=== PATIENT | female | born 1970 | race Caucasian/White ===

== ENCOUNTER 2016-10-08 09:35 | Emergency (ER) | payer OTHER ==
[~2016-10-08] VITALS: Ht 157.5 cm; Wt 101.9 kg
[2016-10-08] MEDS ORDERED: OXCA600T PO (09:50)
[2016-10-08] MEDS ORDERED: KEPP250T5 PO (09:50)
[2016-10-08] MEDS ORDERED: IBUP-1022 PO (09:50)
[2016-10-08] MEDS ORDERED: VITA-110 PO (09:50)
[2016-10-08] MEDS ORDERED: METF-808 PO (09:50)
[2016-10-08] MEDS ORDERED: PRAV40TA2 PO (09:50)
[2016-10-08] MEDS ORDERED: PERCOCET 5MG/325MG TAB PO ONE (10:15)
[2016-10-08] MEDS ORDERED: KETOROLAC 60 MG/2 ML VIAL (J1885) IM ONE (10:15)
[2016-10-08] MEDS ORDERED: PERCOCET 5MG/325MG TAB As Ordered ONE (10:16)
[2016-10-08] MEDS ORDERED: HYDROmorphone HCL 1 MG/ML SYRINGE (J1170) IM ONE (13:00)
--- NOTE | 2016-10-08 14:20 | REP ---
CT study of the cervical spine without contrast: History: Neck pain. Technique: Helical scanning is acquired and overlapping 2 mm high resolution axial images were generated and reviewed at bone and soft tissue window settings. Coronal and sagittal multiplanar re-formations images are generated. CT findings: There is no evidence of cervical spine element fracture. No skull base fracture is seen. Cervical vertebral body heights are preserved. Alignment is normal. Facet joints are normally aligned bilaterally at each cervical level on multiplanar re-formations images. There is no evidence of intraspinal or paraspinal hematoma. No extra vertebral abnormality is seen. There is degenerative disc narrowing and osteophyte formation anteriorly and posteriorly at the C5-6 C6-7 C7-T1 discs. There is reversal of the normal cervical lordosis. There is mild uncovertebral spurring bilaterally at C5-6, left greater than right. Mild uncovertebral spurring is seen bilaterally at C6-7 and C7-T1 as well. Mild facet hypertrophy is noted diffusely. Impression: Moderate degenerative spondylosis changes C5-6 through C7-T1, otherwise negative CT study of the cervical spine without contrast. No fracture seen. Signed by Evert Hernadez MD 10/08/2016 02:10 P
[2016-10-08] MEDS ORDERED: HYDR-3713 PO (14:24)
[2016-10-08] MEDS ORDERED: VALI10TA PO (14:24)
[2016-10-08 14:31] VITALS: BP 168/98
== END 2016-10-08 14:36 | disposition home or self-care (01) ==
LOC: M ED 10:05
DX: M50.322 Other cervical disc degeneration at C5-C6 level (principal); M47.813 Spondylosis without myelopathy or radiculopathy, cervicothoracic region; M54.12 Radiculopathy, cervical region; E66.9 Obesity, unspecified; G40.909 Epilepsy, unspecified, not intractable, without status epilepticus; Z79.899 Other long term (current) drug therapy
CPT/HCPCS: 72125; 96372; 99282; J1170; J1885; J3360

== ENCOUNTER → 2017-07-08 | Outpatient (REF) | payer OTHER ==
[2017-07-08 13:12] LABS: BASO # 0.1 10^3/uL (0.0-0.2); BASO % 0.8 % (0.0-1.0); EOS # 0.2 10^3/uL (0.0-0.50); HEMATOCRIT 42.5 % (36.0-47.0); HEMOGLOBIN 14.7 g/dl (12.0-15.5); IMMATURE GRANULOCYTE % 0.9 % (0-3.0); LYMPH # 2.4 10^3/uL (1.5-4.5); LYMPH % 32.2 % (24.0-44.0); MEAN CORPUSCULAR HEMOGLOBIN 30.1 pg (27.0-33.0); MEAN CORPUSCULAR HGB CONC 34.6 g/dl (32.0-36.5); MEAN CORPUSCULAR VOLUME 87.1 fl (80.0-96.0); MONO # 0.4 10^3/uL (0.0-0.8); MONO % 4.9 % (0.0-5.0); NEUTROPHILS # 4.3 10^3/uL (1.8-7.7); NEUTROPHILS % 58.2 % (36.0-66.0); PLATELET COUNT, AUTOMATED 260 10^3/uL (150-450); RED BLOOD COUNT 4.88 10^6/uL (4.00-5.40); RED CELL DISTRIBUTION WIDTH 12.4 % (11.5-14.5); WHITE BLOOD COUNT 7.4 10^3/uL (4.0-10.0)
[2017-07-08 13:41] LABS: TOTAL 25(OH) VITAMIN D 33.5 NG/ML (30.0-100.0); VITAMIN B12 LEVEL 297 PG/ML
[2017-07-08 13:42] LABS: FOLATE 13.5 NG/ML
[2017-07-08 13:53] LABS: ALBUMIN 4.2 GM/DL (3.2-5.2); ALBUMIN/GLOBULIN RATIO 1.24 (1.00-1.93); ALKALINE PHOSPHATASE 134 U/L (45-117); ALT/SGPT 23 U/L (12-78); ANION GAP 6 MEQ/L (8-16); AST/SGOT 12 U/L (7-37); BILIRUBIN,TOTAL 0.5 MG/DL (0.2-1.0); BLOOD UREA NITROGEN 16 MG/DL (7-18); CALCIUM LEVEL 9.1 MG/DL (8.5-10.1); CARBON DIOXIDE LEVEL 28 MEQ/L (21-32); CHLORIDE LEVEL 106 MEQ/L (98-107); CREATININE FOR GFR 0.67 MG/DL (0.55-1.30); GLOMERULAR FILTRATION RATE > 60.0 (>58); GLUCOSE, FASTING 115 MG/DL (70-100); POTASSIUM SERUM 3.9 MEQ/L (3.5-5.1); SODIUM LEVEL 140 MEQ/L (136-145); TOTAL PROTEIN 7.6 GM/DL (6.4-8.2)
[2017-07-10 14:16] LABS: LEVETIRACETAM (KEPPRA) 24.4 ug/mL (10.0-40.0)
[2017-07-10 14:16] LABS: OXCARBAZEPINE 31 ug/mL (10-35)
== END ==
LOC: M LABNEURO 11:02
DX: G40.009 Localization-related (focal) (partial) idiopathic epilepsy and epileptic syndromes with seizures of localized onset, not intractable, without status epilepticus (principal)
CPT/HCPCS: 82746

== ENCOUNTER → 2017-11-12 | Outpatient (CLI) | payer OTHER | LOC: M RAD 06:15 | DX: R22.2 Localized swelling, mass and lump, trunk (principal) | CPT/HCPCS: 76604 ==

== ENCOUNTER → 2017-11-25 | Outpatient (CLI) | payer OTHER | LOC: M RAD 10:13 | DX: Z12.31 Encounter for screening mammogram for malignant neoplasm of breast (principal) ==

== ENCOUNTER 2018-05-10 08:27 | Emergency (ER) | payer OTHER ==
[~2018-05-10] VITALS: Ht 160 cm; Wt 108.2 kg
[~2018-05-10 08:27] MED LIST: HYDR-3713 PO; IBUP-1022 PO; KEPP250T5 PO; METF-808 PO; OXCA600T8 PO; PRAV40TA2 PO; VALI10TA PO; VITA-110 PO
[2018-05-10 08:28] VITALS: BP 186/84
[2018-05-10] MEDS ORDERED: MECLIZINE 25 MG TABLET PO ONE (09:15)
[2018-05-10] MEDS ORDERED: MECL1CHW2 PO (10:48)
== END 2018-05-10 11:10 | disposition home or self-care (01) ==
LOC: M ED 08:27
DX: H81.12 Benign paroxysmal vertigo, left ear (principal); G40.919 Epilepsy, unspecified, intractable, without status epilepticus; G80.9 Cerebral palsy, unspecified; G43.909 Migraine, unspecified, not intractable, without status migrainosus; E11.9 Type 2 diabetes mellitus without complications; Z79.899 Other long term (current) drug therapy

== ENCOUNTER → 2018-12-15 | Outpatient (CLI) | payer OTHER ==
[~2018-12-15] MED LIST changes: +MECL1CHW PO; -METF-808 PO; +METF-954 PO
--- NOTE | 2018-12-15 11:40 | REPMRS ---
Patient History The patient states she has not had a clinical breast exam in over a year. Patient had first child at age 33. 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 Family history of breast cancer at age 63 in mother, breast cancer in maternal grandmother, breast cancer in maternal aunt, breast cancer in maternal aunt. Benign stereotactic core biopsy of the left breast. Took hormonal contraceptives for 6 years. Digital Mammo Screening Bilat: December 15, 2018 - Exam #: [id number] Bilateral CC and MLO view(s) were taken. Technologist: Angelina Pruitt, Technologist Prior study comparison: November 25, 2017, digital mammo diagnostic bilateral performed at [facility]. June 12, 2015, bilateral digital mammo screening bilat, performed at [facility]. FINDINGS: There are scattered fibroglandular densities. There has been no change in the appearance of the mammogram from the prior studies. There is a mild amount of residual fibroglandular tissue which is fairly symmetric. There is no interval development of dominant mass, architectural distortion, or clustered microcalcification suggestive of malignancy. Assessment: BI-RADS/ACR category 1 mammogram. Negative Mammogram. Recommendation Routine screening mammogram in 1 year (for women over age 40). This mammogram was interpreted with the aid of an FDA-approved computer-aided dectection system. THE LIFETIME RISK OF BREAST CANCER IS 30.0%, THEREFORE SUPPLEMENTAL SCREENING MRI OF THE BREASTS IS RECOMMENDED IN 6 MONTHS. Electronically Signed By: Jose Ramon Velazquez MD 12/15/18 [id number]
== END ==
LOC: M RAD 10:00
PROVIDERS: ATTEND Family Medicine
DX: Z12.31 Encounter for screening mammogram for malignant neoplasm of breast (principal); Z80.3 Family history of malignant neoplasm of breast